=== PATIENT | female | born 1970 | race Caucasian/White ===

== ENCOUNTER 2024-09-24 12:44 | Emergency (ER) | payer OTHER ==
[2024-09-24] MEDS: HYDROcodone/APAP 5-325MG 1 EACH TAB PO STA (13:39)
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
[2024-09-24] MEDS: ACET/COD 300 MG/30 MG STARTER PACK 6 TAB BTL PO STA (16:20)
[2024-09-24 16:25] VITALS: BP 147/80; PULSE 96; RESP 19; TEMP 98.2
== END 2024-09-24 16:25 | disposition home or self-care (01) ==
LOC: EC 12:44
DX: S39.012A Strain of muscle, fascia and tendon of lower back, initial encounter (principal); F17.200 Nicotine dependence, unspecified, uncomplicated; V43.62XA Car passenger injured in collision with other type car in traffic accident, initial encounter
CPT/HCPCS: 70450; 71046; 72125; 72128; 72131; 72170; 99284